=== PATIENT | male | born 1940 | race Two or more races ===

== ENCOUNTER 2017-11-24 20:04 | Inpatient (IN) | payer MEDICAID, MEDICARE ==
[~2017-11-24] VITALS: Ht 177.8 cm; Wt 68.0 kg
[~2017-11-24 20:04] MED LIST: CARVEDILOL25 MG ORAL
[2017-11-24 21:26] LABS: BASOPHILS % (AUTO) 0.8 % (0.0-2.0); EOSINOPHILS % (AUTO) 0.2 % (0.0-3.0); HEMATOCRIT 42.3 % (42.0-52.0); HEMOGLOBIN 13.3 G/DL (14.2-18.0); LYMPHOCYTES % (AUTO) 24.5 % (20.0-45.0); MEAN CORPUSCULAR VOLUME 101 FL (80-99); MONOCYTES % (AUTO) 9.3 % (1.0-10.0); NEUTROPHILS % (AUTO) 65.2 % (45.0-75.0); PLATELET COUNT 211 K/UL (150-450); RED BLOOD COUNT 4.17 M/UL (4.70-6.10); RED CELL DISTRIBUTION WIDTH 12.5 % (11.6-14.8)
--- NOTE | 2017-11-24 21:30 | Emergency Room Report ---
History of Present Illness General Chief Complaint: Dizziness Source: EMS Present Illness HPI 77-year-old male, history of cerebral palsy, presenting with generalized weakness and dizziness. Patient is slow to talk however he is ANO x4. Just states that he has had lightheadedness and dizziness. Has had some episodes of diarrhea. Denies any fever chills, no coughing. No abdominal pain currently Allergies: Coded Allergies: No Known Allergies (Verified , 07/02/10) Patient History Past Medical History: see triage record Past Surgical History: none Pertinent Family History: none Reviewed Nursing Documentation: PMH: Agreed, PSxH: Agreed Nursing Documentation-PMH Past Medical History: No History, Except For Hx Cardiac Problems: Yes - cardiac anomaly Hx Hypertension: Yes Hx Cancer: No Hx Gastrointestinal Problems: No Hx Neurological Problems: Yes - C. Palsy Hx Cerebral Palsy: Yes Review of Systems All Other Systems: negative except mentioned in HPI Physical Exam Vital Signs Date Time Temp Pulse Resp B/P (MAP) Pulse Ox O2 Delivery O2 Flow Rate FiO2 11/24/17 20:02 98.2 88 18 146/80 98 Room Air Sp02 EP Interpretation: reviewed, normal General Appearance: other - cerebral palsy, awake and alert, calm at this time Head: normocephalic, atraumatic Eyes: bilateral eye normal inspection, bilateral eye PERRL, bilateral eye EOMI ENT: normal ENT inspection, normal pharynx, normal voice, moist mucus membranes Neck: normal inspection, full range of motion, supple Respiratory: normal inspection, lungs clear, normal breath sounds, no respiratory distress, no retraction, no wheezing, speaking full sentences, chest symmetrical Cardiovascular #1: normal capillary refill, tachycardia Cardiovascular #2: 2+ radial (R), 2+ radial (L) Gastrointestinal: normal inspection, non tender, soft, non-distended, no guarding Genitourinary: no CVA tenderness Musculoskeletal: normal inspection, back normal, normal range of motion, non- tender Neurologic: normal inspection, alert, oriented x3, responsive, motor strength/ tone normal, sensory intact, normal gait, speech normal Psychiatric: normal inspection, judgement/insight normal, memory normal Skin: normal inspection, normal color, no rash, warm/dry, well hydrated, normal turgor Procedures Critical Care Time Critical Care Time 40 minutes of CC time 77-year-old male, generalized weakness, found to be in ventricular tachycardia, nonsustained VS: Tachycardic. Borderline hypotensive Airway patent. Not hypoxic. PLAN: IV access, labs, lactate, Anticipate admission to Tele vs. [facility] CC time also includes review of labs, review of EMR, discussion with family and paperwork from SNF, d/w hospitalist CC could include dosing of pressors, additional Abx CC time does not include procedures Medical Decision Making Diagnostic Impression: Primary Impression: Generalized weakness Additional Impressions: Cerebral palsy Elevated troponin Non-sustained ventricular tachycardia ER Course 77-year-old male, presenting with generalized weakness, lightheadedness DDX: Dehydration, electrolyte disturbance, infection, cardiac Plan: Obtain labs, ua, EKG, CXR ER course: Pt initially with wide complex tachycardia that had spont resolved. now NSR at 76 +mild elevated troponin Disposition: Patient is to be admitted to tele D/W hospitalist Dr Abad Please note that this Emergency Department Report was dictated using [employer] technology software, occasionally this can lead to erroneous entry secondary to interpretation by the dictation equipment. EKG Diagnostic Results EP Interpretation: Yes Rate: tachycardic Rhythm: Vtach ST Segments: wide complex tachycardia, TWI V5-V6, aVL ASA given to patient: No Rhythm Strip EP Interpretation: Yes Rate: 66 Rhythm: NSR, no PVCs, no ectopy Chest X-ray CXR: Ordered: Yes 1 view Indication: dizziness EP interpretation: Yes Interpretation: negative Impression: no acute disease Electronically signed by Rosa M Tate MD Laboratory Tests Test 11/24/17 21:00 White Blood Count 8.0 K/UL (4.8-10.8) Red Blood Count 4.17 M/UL (4.70-6.10) L Hemoglobin 13.3 G/DL (14.2-18.0) L Hematocrit 42.3 % (42.0-52.0) Mean Corpuscular Volume 101 FL (80-99) H Mean Corpuscular Hemoglobin 31.8 PG (27.0-31.0) H Mean Corpuscular Hemoglobin Concent 31.4 G/DL (32.0-36.0) L Red Cell Distribution Width 12.5 % (11.6-14.8) Platelet Count 211 K/UL (150-450) Mean Platelet Volume 5.7 FL (6.5-10.1) L Neutrophils (%) (Auto) 65.2 % (45.0-75.0) Lymphocytes (%) (Auto) 24.5 % (20.0-45.0) Monocytes (%) (Auto) 9.3 % (1.0-10.0) Eosinophils (%) (Auto) 0.2 % (0.0-3.0) Basophils (%) (Auto) 0.8 % (0.0-2.0) Sodium Level 141 MMOL/L (136-145) Potassium Level 4.4 MMOL/L (3.5-5.1) Chloride Level 105 MMOL/L (98-107) Carbon Dioxide Level 27 MMOL/L (21-32) Anion Gap 9 mmol/L (5-15) Blood Urea Nitrogen 33 mg/dL (7-18) H Creatinine 1.8 MG/DL (0.55-1.30) H Estimate Glomerular Filtration Rate mL/min (>60) Glucose Level 105 MG/DL (74-106) Lactic Acid Level 2.70 mmol/L (0.66-2.22) H Calcium Level 9.5 MG/DL (8.5-10.1) Total Bilirubin 0.3 MG/DL (0.2-1.0) Aspartate Amino Transferase (AST) 17 U/L (15-37) Alanine Aminotransferase (ALT) 19 U/L (12-78) Alkaline Phosphatase 155 U/L (46-116) H Troponin I 0.101 ng/mL (0.000-0.056) Pro-B-Type Natriuretic Peptide 651 pg/mL (0-125) H Total Protein 7.4 G/DL (6.4-8.2) Albumin 3.7 G/DL (3.4-5.0) Globulin 3.7 g/dL Albumin/Globulin Ratio 1.0 (1.0-2.7) Last Vital Signs Date Time Temp Pulse Resp B/P (MAP) Pulse Ox O2 Delivery O2 Flow Rate FiO2 11/24/17 20:02 98.2 88 18 146/80 98 Room Air Disposition: ADMITTED INPATIENT Condition: Critical Rosa M Tate M.D. Nov 24, 2017 21:30
[2017-11-24 21:31] LABS: ANION GAP 9 mmol/L (5-15); BLOOD UREA NITROGEN 33 mg/dL (7-18); CALCIUM 9.5 MG/DL (8.5-10.1); CARBON DIOXIDE 27 MMOL/L (21-32); CHLORIDE 105 MMOL/L (98-107); CREATININE 1.8 MG/DL (0.55-1.30); POTASSIUM 4.4 MMOL/L (3.5-5.1); SODIUM 141 MMOL/L (136-145)
[2017-11-24 21:35] VITALS: BP 93/53
[2017-11-24 21:42] LABS: ALANINE AMINOTRANSFERASE 19 U/L (12-78); ALBUMIN 3.7 G/DL (3.4-5.0); ALKALINE PHOSPHATASE 155 U/L (46-116); ASPARTATE AMINO TRANSFERASE 17 U/L (15-37); BILIRUBIN,TOTAL 0.3 MG/DL (0.2-1.0)
[2017-11-24] MEDS ORDERED: Enalaprilat 2.5mg/2ml Inj IV PRN (22:30)
[2017-11-24] MEDS ORDERED: Miralax 17gm pkt ORAL PRN (22:30)
[2017-11-24] MEDS ORDERED: Albuterol/Ipratropium 3ml neb HHN PRN (22:30)
[2017-11-24] MEDS ORDERED: Nitroglycerin Subl 0.4mg tab SL PRN (22:30)
[2017-11-24] MEDS ORDERED: dilTIAZem HCl 25mg/5ml Inj IV PRN (22:30)
[2017-11-24] MEDS ORDERED: Morphine Sulfate 2mg/ml Inj IVP PRN (22:30)
[2017-11-24] MEDS ORDERED: Ketorolac 30mg Inj IV PRN (22:30)
[2017-11-24 23:47] VITALS: BP 110/54
[2017-11-25] VITALS (7 sets, daily range): BP systolic 82–128; BP diastolic 50–75
[2017-11-25] MEDS ORDERED: DIAZEPAM2 MG ORAL (00:15)
[2017-11-25 05:04] LABS: BASOPHILS % (AUTO) 0.9 % (0.0-2.0); EOSINOPHILS % (AUTO) 0.1 % (0.0-3.0); HEMATOCRIT 33.6 % (42.0-52.0); HEMOGLOBIN 11.4 G/DL (14.2-18.0); LYMPHOCYTES % (AUTO) 32.3 % (20.0-45.0); MEAN CORPUSCULAR VOLUME 99 FL (80-99); MONOCYTES % (AUTO) 8.6 % (1.0-10.0); NEUTROPHILS % (AUTO) 58.1 % (45.0-75.0); PLATELET COUNT 187 K/UL (150-450); RED BLOOD COUNT 3.39 M/UL (4.70-6.10); RED CELL DISTRIBUTION WIDTH 12.5 % (11.6-14.8); WHITE BLOOD COUNT 6.5 K/UL (4.8-10.8)
[2017-11-25 05:19] LABS: INR 1.1 (0.9-1.1)
[2017-11-25 05:33] LABS: CHOLESTEROL 108 MG/DL (< 200); HDL CHOLESTEROL 32 MG/DL (40-60); TRIGLYCERIDES 31 MG/DL (30-150)
[2017-11-25] MEDS: Aspirin Baby 81mg ORAL SCH (08:55)
[2017-11-25] MEDS: Heparin 5000 units/ml inj SUBQ SCH ×2 (08:58→21:27)
[2017-11-25] MEDS ORDERED: Carvedilol 25mg Tab ORAL SCH (09:00)
--- NOTE | 2017-11-25 09:54 | Diagnostic Imaging Report ---
Indication: Pain Technique: XRAY Chest 1v Comparison: 01/27/2016 Findings: Heart size and mediastinal contours within normal limits and stable compared to the prior exam. There is no focal airspace consolidation, pleural effusion or pneumothorax. There is scoliosis of the spine. No acute osseous abnormality seen. Impression: No definite radiographic evidence of acute cardiopulmonary disease.
--- NOTE | 2017-11-25 15:22 | History & Physical ---
History and Physical History & Physicial Dictated for Int Med-Dr Abad no. [id number]. GAYLE VELA Nov 25, 2017 15:22
--- NOTE | 2017-11-25 16:59 | Cardiac Electrophysiology PN ---
Subjective Subjective EP CONSULT DICTATED.BOTH ECGS SUGGESTIVE OF VT. LIKELY NEEDS TRANSFER FOR CARDIAC CATH. [id number] Objective Last 24 Hour Vital Signs Date Time Temp Pulse Resp B/P (MAP) Pulse Ox O2 Delivery O2 Flow Rate FiO2 11/25/17 12:00 45 11/25/17 08:55 64 126/68 11/25/17 08:17 49 16 15/54 95 Room Air 11/25/17 08:00 60 11/25/17 08:00 97.8 63 18 126/75 99 Room Air 11/25/17 07:31 49 16 105/54 99 Room Air 11/25/17 07:05 45 17 108/54 99 Nasal Cannula 2.0 11/25/17 05:39 52 12 103/50 97 Nasal Cannula 2.0 11/25/17 04:00 50 12 128/56 99 Nasal Cannula 2.0 11/25/17 01:50 81 15 106/59 97 Room Air 11/24/17 23:47 60 14 110/54 100 Nasal Cannula 2.0 11/24/17 21:35 98.5 70 15 93/53 100 Nasal Cannula 2.0 11/24/17 20:02 98.2 88 18 146/80 98 Room Air Intake and Output 11/24/17 11/25/17 19:00 07:00 Intake Total 1000 ml Balance 1000 ml IV Total 1000 ml # Voids 1 Laboratory Tests Test 11/24/17 21:00 11/25/17 04:30 White Blood Count 8.0 K/UL (4.8-10.8) 6.5 K/UL (4.8-10.8) Red Blood Count 4.17 M/UL (4.70-6.10) L 3.39 M/UL (4.70-6.10) L Hemoglobin 13.3 G/DL (14.2-18.0) L 11.4 G/DL (14.2-18.0) L Hematocrit 42.3 % (42.0-52.0) 33.6 % (42.0-52.0) L Mean Corpuscular Volume 101 FL (80-99) H 99 FL (80-99) Mean Corpuscular Hemoglobin 31.8 PG (27.0-31.0) H 33.7 PG (27.0-31.0) H Mean Corpuscular Hemoglobin Concent 31.4 G/DL (32.0-36.0) L 34.0 G/DL (32.0-36.0) Red Cell Distribution Width 12.5 % (11.6-14.8) 12.5 % (11.6-14.8) Platelet Count 211 K/UL (150-450) 187 K/UL (150-450) Mean Platelet Volume 5.7 FL (6.5-10.1) L 6.5 FL (6.5-10.1) Neutrophils (%) (Auto) 65.2 % (45.0-75.0) 58.1 % (45.0-75.0) Lymphocytes (%) (Auto) 24.5 % (20.0-45.0) 32.3 % (20.0-45.0) Monocytes (%) (Auto) 9.3 % (1.0-10.0) 8.6 % (1.0-10.0) Eosinophils (%) (Auto) 0.2 % (0.0-3.0) 0.1 % (0.0-3.0) Basophils (%) (Auto) 0.8 % (0.0-2.0) 0.9 % (0.0-2.0) Sodium Level 141 MMOL/L (136-145) Potassium Level 4.4 MMOL/L (3.5-5.1) Chloride Level 105 MMOL/L (98-107) Carbon Dioxide Level 27 MMOL/L (21-32) Anion Gap 9 mmol/L (5-15) Blood Urea Nitrogen 33 mg/dL (7-18) H Creatinine 1.8 MG/DL (0.55-1.30) H Estimat Glomerular Filtration Rate mL/min (>60) Glucose Level 105 MG/DL (74-106) Lactic Acid Level 2.70 mmol/L (0.66-2.22) H Calcium Level 9.5 MG/DL (8.5-10.1) Total Bilirubin 0.3 MG/DL (0.2-1.0) Aspartate Amino Transf (AST/SGOT) 17 U/L (15-37) Alanine Aminotransferase (ALT/SGPT) 19 U/L (12-78) Alkaline Phosphatase 155 U/L (46-116) H Troponin I 0.101 ng/mL (0.000-0.056) 0.285 ng/mL (0.000-0.056) Pro-B-Type Natriuretic Peptide 651 pg/mL (0-125) H Total Protein 7.4 G/DL (6.4-8.2) Albumin 3.7 G/DL (3.4-5.0) Globulin 3.7 g/dL Albumin/Globulin Ratio 1.0 (1.0-2.7) Prothrombin Time 11.4 SEC (9.30-11.50) Prothromb Time International Ratio 1.1 (0.9-1.1) Activated Partial Thromboplast Time 28 SEC (23-33) C-Reactive Protein, Quantitative 0.5 mg/dL (0.00-0.90) Triglycerides Level 31 MG/DL (30-150) Cholesterol Level 108 MG/DL (< 200) LDL Cholesterol 74 mg/dL (<100) HDL Cholesterol 32 MG/DL (40-60) L Cholesterol/HDL Ratio 3.4 (3.3-4.4) Thyroid Stimulating Hormone (TSH) 4.355 uiU/mL (0.358-3.740) PERICO US Nov 25, 2017 16:59
[2017-11-25] MEDS ORDERED: NS 500ML ONE (17:48)
--- NOTE | 2017-11-25 19:18 | Consultation ---
History of Present Illness General Date patient seen: Nov 25, 2017 Chief Complaint: Dizziness Reason for Consultation: inpatient management Present Illness HPI 77-year-old male, history of cerebral palsy BIPA with generalized weakness and dizziness. Patient is slow to talk however he is ANO x4. Just states that he has had lightheadedness and dizziness. Has had some episodes of diarrhea. Denies any fever chills, no coughing. No abdominal pain currently. Pt has hx of arrhythmias in the past and needed cardioversion before. Allergies: Coded Allergies: No Known Allergies (Verified , 07/02/10) Medication History Scheduled Carvedilol* (Carvedilol*), 25 MG ORAL EVERY 12 HOURS, (Reported) Diazepam* (Diazepam*), 2.5 MG ORAL Q6H, (Reported) Patient History Healthcare decision maker Resuscitation status Advanced Directive on File Past Medical/Surgical History Past Medical/Surgical History: (1) Cerebral palsy Review of Systems Constitutional: Reports: no symptoms, malaise, weakness Eye: Reports: no symptoms Physical Exam General Appearance: cachetic Lines, tubes and drains: peripheral, central line HEENT: normocephalic, atraumatic Neck: non-tender, normal alignment Respiratory/Chest: chest wall non-tender, lungs clear, normal breath sounds Breasts: no masses Cardiovascular/Chest: normal peripheral pulses Abdomen: normal bowel sounds Genitourinary/Rectal: normal genital exam Last 24 Hour Vital Signs Date Time Temp Pulse Resp B/P (MAP) Pulse Ox O2 Delivery O2 Flow Rate FiO2 11/25/17 16:00 47 11/25/17 12:00 45 11/25/17 08:55 64 126/68 11/25/17 08:17 49 16 15/54 95 Room Air 11/25/17 08:00 60 11/25/17 08:00 97.8 63 18 126/75 99 Room Air 11/25/17 07:31 49 16 105/54 99 Room Air 11/25/17 07:05 45 17 108/54 99 Nasal Cannula 2.0 11/25/17 05:39 52 12 103/50 97 Nasal Cannula 2.0 11/25/17 04:00 50 12 128/56 99 Nasal Cannula 2.0 11/25/17 01:50 81 15 106/59 97 Room Air 11/24/17 23:47 60 14 110/54 100 Nasal Cannula 2.0 11/24/17 21:35 98.5 70 15 93/53 100 Nasal Cannula 2.0 11/24/17 20:02 98.2 88 18 146/80 98 Room Air Intake and Output 11/24/17 11/25/17 19:00 07:00 Intake Total 1000 ml Balance 1000 ml IV Total 1000 ml # Voids 1 Laboratory Tests Test 11/24/17 21:00 11/25/17 04:30 White Blood Count 8.0 K/UL (4.8-10.8) 6.5 K/UL (4.8-10.8) Red Blood Count 4.17 M/UL (4.70-6.10) L 3.39 M/UL (4.70-6.10) L Hemoglobin 13.3 G/DL (14.2-18.0) L 11.4 G/DL (14.2-18.0) L Hematocrit 42.3 % (42.0-52.0) 33.6 % (42.0-52.0) L Mean Corpuscular Volume 101 FL (80-99) H 99 FL (80-99) Mean Corpuscular Hemoglobin 31.8 PG (27.0-31.0) H 33.7 PG (27.0-31.0) H Mean Corpuscular Hemoglobin Concent 31.4 G/DL (32.0-36.0) L 34.0 G/DL (32.0-36.0) Red Cell Distribution Width 12.5 % (11.6-14.8) 12.5 % (11.6-14.8) Platelet Count 211 K/UL (150-450) 187 K/UL (150-450) Mean Platelet Volume 5.7 FL (6.5-10.1) L 6.5 FL (6.5-10.1) Neutrophils (%) (Auto) 65.2 % (45.0-75.0) 58.1 % (45.0-75.0) Lymphocytes (%) (Auto) 24.5 % (20.0-45.0) 32.3 % (20.0-45.0) Monocytes (%) (Auto) 9.3 % (1.0-10.0) 8.6 % (1.0-10.0) Eosinophils (%) (Auto) 0.2 % (0.0-3.0) 0.1 % (0.0-3.0) Basophils (%) (Auto) 0.8 % (0.0-2.0) 0.9 % (0.0-2.0) Sodium Level 141 MMOL/L (136-145) Potassium Level 4.4 MMOL/L (3.5-5.1) Chloride Level 105 MMOL/L (98-107) Carbon Dioxide Level 27 MMOL/L (21-32) Anion Gap 9 mmol/L (5-15) Blood Urea Nitrogen 33 mg/dL (7-18) H Creatinine 1.8 MG/DL (0.55-1.30) H Estimat Glomerular Filtration Rate mL/min (>60) Glucose Level 105 MG/DL (74-106) Lactic Acid Level 2.70 mmol/L (0.66-2.22) H Calcium Level 9.5 MG/DL (8.5-10.1) Total Bilirubin 0.3 MG/DL (0.2-1.0) Aspartate Amino Transf (AST/SGOT) 17 U/L (15-37) Alanine Aminotransferase (ALT/SGPT) 19 U/L (12-78) Alkaline Phosphatase 155 U/L (46-116) H Troponin I 0.101 ng/mL (0.000-0.056) 0.285 ng/mL (0.000-0.056) Pro-B-Type Natriuretic Peptide 651 pg/mL (0-125) H Total Protein 7.4 G/DL (6.4-8.2) Albumin 3.7 G/DL (3.4-5.0) Globulin 3.7 g/dL Albumin/Globulin Ratio 1.0 (1.0-2.7) Prothrombin Time 11.4 SEC (9.30-11.50) Prothromb Time International Ratio 1.1 (0.9-1.1) Activated Partial Thromboplast Time 28 SEC (23-33) C-Reactive Protein, Quantitative 0.5 mg/dL (0.00-0.90) Triglycerides Level 31 MG/DL (30-150) Cholesterol Level 108 MG/DL (< 200) LDL Cholesterol 74 mg/dL (<100) HDL Cholesterol 32 MG/DL (40-60) L Cholesterol/HDL Ratio 3.4 (3.3-4.4) Thyroid Stimulating Hormone (TSH) 4.355 uiU/mL (0.358-3.740) Height (Feet): 5 Height (Inches): 10.00 Weight (Pounds): 150 Medications Current Medications Medications (Trade) Dose Ordered Sig/Haja Route PRN Reason Start Time Stop Time Status Last Admin Dose Admin Acetaminophen (Tylenol) 650 mg Q4H PRN ORAL FEVER 11/24/17 22:30 12/24/17 22:29 Albuterol/ Ipratropium (Albuterol/ Ipratropium) 3 ml Q4H PRN HHN Shortness of Breath 11/24/17 22:30 11/29/17 22:29 Aspirin (ASA) 162 mg DAILY ORAL 11/25/17 09:00 12/25/17 08:59 11/25/17 08:55 Carvedilol (Coreg) 12.5 mg EVERY 12 HOURS ORAL 11/25/17 21:00 12/25/17 20:59 Enalaprilat (Vasotec) 2.5 mg Q6H PRN IV sbp more than 160 11/24/17 22:30 12/24/17 22:29 Heparin Sodium (Porcine) (Heparin 5000 units/ml) 5,000 units EVERY 12 HOURS SUBQ 11/25/17 09:00 12/25/17 08:59 11/25/17 08:58 Ketorolac Tromethamine (Toradol 30mg) 30 mg Q6HR PRN IV moderate pain ( 4-6) 11/24/17 22:30 11/29/17 22:29 Morphine Sulfate (Morphine Sulfate) 2 mg Q4H PRN IVP severe Pain (Pain Scale 7-10) 11/24/17 22:30 12/01/17 22:29 Nitroglycerin (Ntg) 0.4 mg every 5 minutes PRN SL Prn Chest Pain 11/24/17 22:30 12/24/17 22:29 Ondansetron HCl (Zofran) 4 mg Q6H PRN IVP Nausea & Vomiting 11/24/17 22:30 2 22:29 Polyethylene Glycol (Miralax) 17 gm DAILYPRN PRN ORAL Constipation 11/24/17 22:30 2/11/18 22:29 Sodium Chloride 1,000 ml @ 150 mls/hr Q6H40M IV 11/24/17 22:00 12/24/17 21:59 11/25/17 17:25 Temazepam (Restoril) 15 mg HSPRN PRN ORAL Insomnia 11/24/17 22:30 12/01/17 22:29 Assessment/Plan Problem List: (1) Acute encephalopathy ICD Codes: G93.40 - Encephalopathy, unspecified SNOMED: 2774424 (2) Generalized weakness ICD Codes: R53.1 - Weakness SNOMED: 34780645 (3) Cerebral palsy ICD Codes: G80.9 - Cerebral palsy, unspecified SNOMED: 460372565 (4) Elevated troponin ICD Codes: R74.8 - Abnormal levels of other serum enzymes SNOMED: 751946771, [id number], 444226175 (5) Non-sustained ventricular tachycardia ICD Codes: I47.2 - Ventricular tachycardia SNOMED: 714569286 Assessment/Plan telemetry admit cardio evaluation echo and troponin symptomatic treatment MARIO MCCOLLUM Nov 25, 2017 19:18
--- NOTE | 2017-11-25 19:30 | History and Physical Report ---
DATE OF ADMISSION: 11/24/2017 CHIEF COMPLAINT: The patient is a 77-year-old white male with history of cerebral palsy, presents with a chief complaint of near syncope. HISTORY OF PRESENT ILLNESS: The patient states he has a history of syncope. The patient has a history of cardiac arrhythmia. The patient states that he has arrested twice requiring cardioversion. The patient states that yesterday, he experienced extreme generalized weakness. The patient also had vertigo. The patient states he almost passed out. The patient presented to [place] emergency room. The patient is admitted for near syncope. PAST MEDICAL HISTORY: Significant for: 1. Unknown cardiac arrhythmia. 2. Cerebral palsy. 3. Hypercholesterolemia. PAST SURGICAL HISTORY: The patient denies. CURRENT MEDICATIONS: 1. Carvedilol 25 mg p.o. twice daily. 2. Valium mg p.o. q.6 hours p.r.n. ALLERGIES: No known drug allergies. SOCIAL HISTORY: The patient is a . The patient lives with his adult daughter and grandchild. The patient denies tobacco or alcohol use. REVIEW OF SYSTEMS: CONSTITUTIONAL: The patient denies weight loss or weight gain. The patient denies fevers or chills. HEENT: The patient denies ear or throat pain. The patient denies headache. CARDIOVASCULAR: The patient complains of cardiac arrhythmia as above. The patient denies palpitations. ABDOMEN: The patient denies nausea, vomiting, diarrhea, or constipation. GENITOURINARY: The patient denies dysuria or increased frequency of urination. NEUROMUSCULAR: The patient complains of generalized weakness. The patient complains of near syncope as above. The patient denies seizures. PHYSICAL EXAMINATION: VITAL SIGNS: Temperature 97.8, respirations 18, pulse 45 to 64, and blood pressure 105 to 126/50 to 75. GENERAL: The patient is a well-developed and well-nourished thin-appearing white male, who has choreiform movements. HEENT: Eyes, pupils equal and responsive to light and accommodation. Extraocular movements intact. NECK: Supple without lymphadenopathy. CHEST: Lungs are clear to auscultation bilaterally without wheezes or rales. CARDIOVASCULAR: Regular rate. S1 and S2 are normal without murmurs, rubs, or gallops. ABDOMEN: Soft, nontender, and nondistended. Positive bowel sounds. No evidence of hepatosplenomegaly. Currently, no rebound or guarding noted. EXTREMITIES: Negative for clubbing, cyanosis, or edema. RECTAL/GENITAL: Refused. NEUROLOGIC: Cranial nerves II through XII are grossly intact without focal deficit. Motor strength is difficult to assess secondary to choreiform movements as above. LABORATORY STUDIES: WBC 8.3, hemoglobin 13.3, hematocrit 42.3, and platelets 211,000. Sodium 141, potassium 4.4, chloride 107, CO2 27, BUN 33, creatinine 1.8, and glucose 105. Troponin elevated at 0.101. EKG demonstrated sinus bradycardia at approximately 45 beats per minute. The patient has a first-degree AV block. ASSESSMENT: This is a 77-year-old white male. 1. Near syncope. 2. Bradycardia. 3. Generalized weakness. 4. Vertigo. 5. Cerebral palsy. 6. Elevated troponin. 7. First-degree atrioventricular block. TREATMENT: 1. Near syncope/bradycardia. A Cardiology consultation has been obtained with Dr. Cornell Xiao. An Electrophysiology consultation was obtained with Dr. Janusz Saleem. The patient may require pacemaker. We will follow recommendations of Dr. Saleem. 2. Generalized weakness. 3. Vertigo. 4. History of cerebral palsy. 5. Elevated troponin. As above, a Cardiology consultation has been obtained with Dr. Cornell Xiao. David Dalton M.D. DR: VINCE JOB#: [id number] CC:
[2017-11-25] MEDS: Carvedilol 12.5mg tab ORAL SCH (21:28)
[2017-11-26] VITALS: BP 145/65
[2017-11-26 04:00] VITALS: BP 140/95
[2017-11-26 08:00] VITALS: BP 131/55
[2017-11-26] MEDS: Aspirin Baby 81mg ORAL SCH (08:24)
[2017-11-26] MEDS: Carvedilol 12.5mg tab ORAL SCH ×2 (08:25→21:00)
[2017-11-26] MEDS: Heparin 5000 units/ml inj SUBQ SCH ×2 (08:26→20:45)
--- NOTE | 2017-11-26 09:52 | Pulmonology Progress Note ---
Assessment/Plan Problems: (1) Acute encephalopathy (2) Generalized weakness (3) Cerebral palsy (4) Elevated troponin (5) Non-sustained ventricular tachycardia Assessment/Plan troponin higher no new complains f/u cardio recommendations Subjective ROS Limited/Unobtainable: No Constitutional: Reports: no symptoms HEENT: Repors: no symptoms Respiratory: Reports: no symptoms Cardiovascular: Reports: no symptoms Allergies: Coded Allergies: No Known Allergies (Verified , 07/02/10) Objective Last 24 Hour Vital Signs Date Time Temp Pulse Resp B/P (MAP) Pulse Ox O2 Delivery O2 Flow Rate FiO2 11/26/17 08:25 60 132/55 11/26/17 08:00 97.7 60 18 131/55 96 Room Air 11/26/17 04:00 44 11/26/17 04:00 97.0 69 20 140/95 97 11/26/17 00:00 97.3 60 20 145/65 98 11/26/17 00:00 46 11/25/17 21:28 97 117/58 11/25/17 20:00 44 11/25/17 20:00 97.9 81 16 82/56 97 11/25/17 16:00 47 11/25/17 12:00 45 Intake and Output 11/25/17 11/26/17 19:00 07:00 Intake Total 990 ml 1650 ml Output Total 450 ml 1500 ml Balance 540 ml 150 ml Intake Oral 240 ml IV Total 750 ml 1650 ml Output Urine Total 450 ml 1500 ml General Appearance: no acute distress HEENT: normocephalic, atraumatic Respiratory/Chest: chest wall non-tender, lungs clear Cardiovascular: normal peripheral pulses, normal rate Abdomen: normal bowel sounds, soft, non tender Skin: no rash Neurologic/Psychiatric: no motor/sensory deficits Microbiology Date/Time Source Procedure Growth Status 11/24/17 21:10 Blood Blood Culture - Preliminary NO GROWTH AFTER 24 HOURS Resulted 11/24/17 20:55 Blood Blood Culture - Preliminary NO GROWTH AFTER 24 HOURS Resulted Laboratory Tests 11/26/17 05:15: Troponin I 0.387H Current Medications Medications (Trade) Dose Ordered Sig/Haja Route PRN Reason Start Time Stop Time Status Last Admin Dose Admin Acetaminophen (Tylenol) 650 mg Q4H PRN ORAL FEVER 11/24/17 22:30 12/24/17 22:29 Albuterol/ Ipratropium (Albuterol/ Ipratropium) 3 ml Q4H PRN HHN Shortness of Breath 11/24/17 22:30 11/29/17 22:29 Aspirin (ASA) 162 mg DAILY ORAL 11/25/17 09:00 12/25/17 08:59 11/26/17 08:24 Carvedilol (Coreg) 12.5 mg EVERY 12 HOURS ORAL 11/25/17 21:00 12/25/17 20:59 11/26/17 08:25 Enalaprilat (Vasotec) 2.5 mg Q6H PRN IV sbp more than 160 11/24/17 22:30 12/24/17 22:29 Heparin Sodium (Porcine) (Heparin 5000 units/ml) 5,000 units EVERY 12 HOURS SUBQ 11/25/17 09:00 12/25/17 08:59 11/26/17 08:26 Ketorolac Tromethamine (Toradol 30mg) 30 mg Q6HR PRN IV moderate pain ( 4-6) 11/24/17 22:30 11/29/17 22:29 Morphine Sulfate (Morphine Sulfate) 2 mg Q4H PRN IVP severe Pain (Pain Scale 7-10) 11/24/17 22:30 12/01/17 22:29 Nitroglycerin (Ntg) 0.4 mg every 5 minutes PRN SL Prn Chest Pain 11/24/17 22:30 12/24/17 22:29 Ondansetron HCl (Zofran) 4 mg Q6H PRN IVP Nausea & Vomiting 11/24/17 22:30 12/24/17 22:29 Polyethylene Glycol (Miralax) 17 gm DAILYPRN PRN ORAL Constipation 11/24/17 22:30 12/24/17 22:29 Sodium Chloride 1,000 ml @ 150 mls/hr Q6H40M IV 11/24/17 22:00 12/24/17 21:59 11/26/17 07:20 Temazepam (Restoril) 15 mg HSPRN PRN ORAL Insomnia 11/24/17 22:30 12/01/17 22:29 MARIO MCCOLLUM Nov 26, 2017 09:52
[2017-11-26 12:00] VITALS: BP 122/69
[2017-11-26] MEDS ORDERED: D5NS 1000ml IV ONE (15:54)
[2017-11-26] MEDS ORDERED: NS 500ML ONE (15:54)
[2017-11-26 16:00] VITALS: BP 151/88
--- NOTE | 2017-11-26 16:26 | Internal Med Progress Note ---
Subjective Date of Service: Nov 26, 2017 Physician Name David Vela Attending Physician Brendan Abad MD Current Medications Medications (Trade) Dose Ordered Sig/Haja Route PRN Reason Start Time Stop Time Status Last Admin Dose Admin Acetaminophen (Tylenol) 650 mg Q4H PRN ORAL FEVER 11/24/17 22:30 12/24/17 22:29 Albuterol/ Ipratropium (Albuterol/ Ipratropium) 3 ml Q4H PRN HHN Shortness of Breath 11/24/17 22:30 11/29/17 22:29 Aspirin (ASA) 162 mg DAILY ORAL 11/25/17 09:00 12/25/17 08:59 11/26/17 08:24 Carvedilol (Coreg) 12.5 mg EVERY 12 HOURS ORAL 11/25/17 21:00 12/25/17 20:59 11/26/17 08:25 Diazepam (Valium) 2.5 mg Q6H PRN ORAL For Anxiety 11/26/17 16:00 12/03/17 15:59 Enalaprilat (Vasotec) 2.5 mg Q6H PRN IV sbp more than 160 11/24/17 22:30 12/24/17 22:29 Heparin Sodium (Porcine) (Heparin 5000 units/ml) 5,000 units EVERY 12 HOURS SUBQ 11/25/17 09:00 12/25/17 08:59 11/26/17 08:26 Ketorolac Tromethamine (Toradol 30mg) 30 mg Q6HR PRN IV moderate pain ( 4-6) 11/24/17 22:30 11/29/17 22:29 Morphine Sulfate (Morphine Sulfate) 2 mg Q4H PRN IVP severe Pain (Pain Scale 7-10) 11/24/17 22:30 12/01/17 22:29 Nitroglycerin (Ntg) 0.4 mg every 5 minutes PRN SL Prn Chest Pain 11/24/17 22:30 12/24/17 22:29 Ondansetron HCl (Zofran) 4 mg Q6H PRN IVP Nausea & Vomiting 11/24/17 22:30 12/24/17 22:29 Polyethylene Glycol (Miralax) 17 gm DAILYPRN PRN ORAL Constipation 11/24/17 22:30 12/24/17 22:29 Sodium Chloride 1,000 ml @ 150 mls/hr Q6H40M IV 11/24/17 22:00 12/24/17 21:59 11/26/17 13:46 Tamsulosin HCl (Flomax) 0.4 mg BEDTIME ORAL 11/26/17 21:00 12/26/17 20:59 Temazepam (Restoril) 15 mg HSPRN PRN ORAL Insomnia 11/24/17 22:30 12/01/17 22:29 Allergies: Coded Allergies: No Known Allergies (Verified , 07/02/10) ROS Limited/Unobtainable: No Constitutional: Reports: no symptoms HEENT: Reports: no symptoms Cardiovascular: Reports: no symptoms Respiratory: Reports: no symptoms Gastrointestinal/Abdominal: Reports: no symptoms Genitourinary: Reports: no symptoms Neurologic/Psychiatric: Reports: no symptoms Subjective 77 YO M admitted with near syncope. Now bradycardia-see EP cardiology note- needs transfer to [facility] for cardiac cath. Cover for Int Med-Dr Abad Objective Last Vital Signs Date Time Temp Pulse Resp B/P (MAP) Pulse Ox O2 Delivery O2 Flow Rate FiO2 11/26/17 12:00 97.2 48 20 122/69 96 Room Air 11/25/17 07:05 2.0 General Appearance: WD/WN, no apparent distress, alert EENT: PERRL/EOMI, normal ENT inspection Neck: non-tender, normal alignment, supple, normal inspection Cardiovascular: normal peripheral pulses, normal rate, regular rhythm, no gallop/murmur, no JVD Respiratory/Chest: chest wall non-tender, lungs clear, normal breath sounds, no respiratory distress, no accessory muscle use Abdomen: normal bowel sounds, non tender, soft, no organomegaly, no mass Extremities: normal range of motion, non-tender 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, no motor/sensory deficits, other - choriform movements Skin: normal pigmentation, warm/dry Laboratory Tests Test 11/26/17 05:15 Troponin I 0.387 ng/mL (0.000-0.056) Microbiology Date/Time Source Procedure Growth Status 11/24/17 21:10 Blood Blood Culture - Preliminary NO GROWTH AFTER 24 HOURS Resulted 11/24/17 20:55 Blood Blood Culture - Preliminary NO GROWTH AFTER 24 HOURS Resulted Intake and Output 11/25/17 11/26/17 19:00 07:00 Intake Total 990 ml 1650 ml Output Total 450 ml 1500 ml Balance 540 ml 150 ml Intake Oral 240 ml IV Total 750 ml 1650 ml Output Urine Total 450 ml 1500 ml Assessment/Plan Problem List: (1) Bradycardia Assessment & Plan: See EP cardiology note. Needs transfer to [facility] for cardiac cath (2) Near syncope Assessment & Plan: ?duue to bradycardia? (3) Vertigo (4) Hyperkalemia Assessment & Plan: Kayexalate (5) Non-sustained ventricular tachycardia (6) Elevated troponin Assessment & Plan: see cardiology note. (7) Cerebral palsy Status: not improved DAVID VELA Nov 26, 2017 16:26
[2017-11-26 20:00] VITALS: BP 138/70
[2017-11-26] MEDS: Tamsulosin 0.4mg cap ORAL SCH (20:43)
[2017-11-27] VITALS (7 sets, daily range): BP systolic 123–139; BP diastolic 66–84
--- NOTE | 2017-11-27 08:00 | Consultation ---
DATE OF CONSULTATION: 11/25/2017 CARDIOLOGY CONSULTATION CONSULTING PHYSICIAN: Janusz Saleem M.D. ATTENDING/REFERRING PHYSICIAN: Brendan Abad M.D. REASON FOR CONSULTATION: Bradycardia as well as wide-complex tachycardia, possible ventricular tachycardia. HISTORY OF PRESENT ILLNESS: The patient is a 77-year-old gentleman with history of cerebral palsy, who presented to the emergency room with generalized weakness and dizziness. The patient did not have any chest pain, fever, chills, nausea, vomiting, or diaphoresis. In the emergency room, the patient was in wide-complex tachycardia at rate of 141 beats per minute on 12-lead EKG at 2034 hours as well as 203 hours and 2048 hours. Apparently, arrhythmia terminated spontaneously in the emergency room. The patient was borderline hypotensive. The patient was subsequently admitted to telemetry floor as his symptoms converted to sinus rhythm. The patient underwent an echocardiogram also done that showed ejection fraction of 55%. His troponin also was mildly elevated. Cardiac electrophysiology consultation was requested for further evaluation and management. PAST MEDICAL HISTORY: 1. Hypertension. 2. Cerebral palsy. FAMILY HISTORY: Noncontributory. SOCIAL HISTORY: Does not smoke or drink alcohol. REVIEW OF SYSTEMS: Negative other than what is mentioned in the history of present illness. PHYSICAL EXAMINATION: VITAL SIGNS: Blood pressure 126/68, pulse is 45, respirations 18, and he is afebrile. HEAD AND NECK: Shows no JVD. LUNGS: Clear. CARDIOVASCULAR: Shows regular S1 and S2 with no gallop or murmur and bradycardic. ABDOMEN: Soft. EXTREMITIES: No pitting edema. LABORATORY DATA: His labs show troponin of 0.10 and 0.285. Sodium 141, potassium 4.4, BUN of 32, creatinine 1.8, and glucose of 105. Triglycerides , cholesterol 108. TSH 4.355. BNP 651. His INR is 1.1. ASSESSMENT AND PLAN: 1. Sustained wide-complex tachycardia. I do not have a 12-lead EKG in sinus rhythm, however, of this arrhythmia, this is likely ventricular tachycardia. We will also repeat the troponin. The patient likely would need transfer for cardiac catheterization and evaluation of his coronaries or at least a coronary CT angiogram solution related to his coronaries. In the meantime, I would decrease his Coreg to 12.5 mg b.i.d. in view of his bradycardic episodes. 2. Bradycardia with sinus bradycardia. Again, decrease the Coreg. We will watch the patient on telemetry. 3. Hypertension, on p.r.n. Vasotec. I will discontinue p.r.n. Cardizem and add p.r.n. hydralazine to his medical regimen. 4. Cerebral palsy. Thank you very much, Dr. Abad, for allowing me to participate in the care of this gentleman. Please do not hesitate to contact me for any questions regarding my evaluation. Jansuz Saleem M.D. DR: KIKI JOB#: [id number] CC:
[2017-11-27] MEDS: Aspirin Baby 81mg ORAL SCH (08:52)
[2017-11-27] MEDS: Carvedilol 12.5mg tab ORAL SCH (08:52)
[2017-11-27] MEDS: Heparin 5000 units/ml inj SUBQ SCH ×2 (08:58→20:34)
--- NOTE | 2017-11-27 10:24 | Cardiac Electrophysiology PN ---
Assessment/Plan Assessment/Plan 1. Sustained wide-complex tachycardia. 12-lead EKG similar to Wide complex tachy morphology. Can't exclude SVT with LBBB aberrancy versus V. Tach. Would need transfer for cardiac catheterization and EP study specially that also has rising troponin 0.1 and then 0.285 and then 0.387 Repeat troponin and add Lipitor 10 mg 2. 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 Decrease his Coreg to 6.25 mg b.i.d 3. Hypertension, on Coreg and p.r.n. Vasotec 4. Cerebral palsy. Subjective Subjective No chest pain or SOB. Lowest HR was 46 overnight. Objective Last 24 Hour Vital Signs Date Time Temp Pulse Resp B/P (MAP) Pulse Ox O2 Delivery O2 Flow Rate FiO2 11/27/17 08:52 47 136/69 11/27/17 08:01 47 18 Room Air 21 11/27/17 08:00 97.3 47 20 136/69 97 Room Air 11/27/17 04:00 97.2 55 20 139/66 96 Room Air 11/27/17 04:00 43 11/27/17 00:06 97.9 42 18 133/84 Room Air 11/27/17 00:00 44 11/26/17 21:00 46 138/60 11/26/17 20:04 45 11/26/17 20:00 98.2 51 20 138/70 96 Room Air 11/26/17 19:30 55 16 Room Air 21 11/26/17 16:00 46 11/26/17 16:00 97.3 49 20 151/88 95 Room Air 11/26/17 12:00 45 11/26/17 12:00 97.2 48 20 122/69 96 Room Air Intake and Output 11/26/17 11/27/17 19:00 07:00 Intake Total 510 ml 1870.0 ml Output Total 750 ml 1050 ml Balance -240 ml 820.0 ml Intake Oral 360 ml 120 ml IV Total 150 ml 1750.0 ml Output Urine Total 750 ml 1050 ml # Voids 1 # Bowel Movements 1 1 Microbiology Date/Time Source Procedure Growth Status 11/24/17 21:10 Blood Blood Culture - Preliminary NO GROWTH AFTER 48 HOURS Resulted 11/24/17 20:55 Blood Blood Culture - Preliminary NO GROWTH AFTER 48 HOURS Resulted Objective HEAD AND NECK: Shows no JVD. LUNGS: Clear. CARDIOVASCULAR: Regular S1 and S2 with no gallop or murmur and bradycardic. ABDOMEN: Soft. EXTREMITIES: No pitting edema. PERICO US Nov 27, 2017 10:24
--- NOTE | 2017-11-27 11:25 | Pulmonology Progress Note ---
Assessment/Plan Problems: (1) Acute encephalopathy (2) Generalized weakness (3) Cerebral palsy (4) Elevated troponin (5) Non-sustained ventricular tachycardia Assessment/Plan looks comfortable adjust cardiac meds no new complains f/u cardio recommendations to transfer to cardiac cath. Subjective ROS Limited/Unobtainable: No Constitutional: Reports: no symptoms HEENT: Repors: no symptoms Respiratory: Reports: no symptoms Allergies: Coded Allergies: No Known Allergies (Verified , 07/02/10) Objective Last 24 Hour Vital Signs Date Time Temp Pulse Resp B/P (MAP) Pulse Ox O2 Delivery O2 Flow Rate FiO2 11/27/17 08:52 47 136/69 11/27/17 08:01 47 18 Room Air 21 11/27/17 08:00 97.3 47 20 136/69 97 Room Air 11/27/17 04:00 97.2 55 20 139/66 96 Room Air 11/27/17 04:00 43 11/27/17 00:06 97.9 42 18 133/84 Room Air 11/27/17 00:00 44 11/26/17 21:00 46 138/60 11/26/17 20:04 45 11/26/17 20:00 98.2 51 20 138/70 96 Room Air 11/26/17 19:30 55 16 Room Air 21 11/26/17 16:00 46 11/26/17 16:00 97.3 49 20 151/88 95 Room Air 11/26/17 12:00 45 11/26/17 12:00 97.2 48 20 122/69 96 Room Air Intake and Output 11/26/17 11/27/17 19:00 07:00 Intake Total 510 ml 1870.0 ml Output Total 750 ml 1050 ml Balance -240 ml 820.0 ml Intake Oral 360 ml 120 ml IV Total 150 ml 1750.0 ml Output Urine Total 750 ml 1050 ml # Voids 1 # Bowel Movements 1 1 General Appearance: WD/WN HEENT: normocephalic, atraumatic Respiratory/Chest: chest wall non-tender, lungs clear Cardiovascular: normal peripheral pulses, normal rate Abdomen: normal bowel sounds, soft, non tender, no scars Extremities: no cyanosis Skin: no rash Microbiology Date/Time Source Procedure Growth Status 11/24/17 21:10 Blood Blood Culture - Preliminary NO GROWTH AFTER 48 HOURS Resulted 11/24/17 20:55 Blood Blood Culture - Preliminary NO GROWTH AFTER 48 HOURS Resulted Laboratory Tests 11/27/17 11:00: Troponin I [Pending] Current Medications Medications (Trade) Dose Ordered Sig/Haja Route PRN Reason Start Time Stop Time Status Last Admin Dose Admin Acetaminophen (Tylenol) 650 mg Q4H PRN ORAL FEVER 11/24/17 22:30 12/24/17 22:29 Albuterol/ Ipratropium (Albuterol/ Ipratropium) 3 ml Q4H PRN HHN Shortness of Breath 11/24/17 22:30 11/29/17 22:29 Aspirin (ASA) 162 mg DAILY ORAL 11/25/17 09:00 12/25/17 08:59 11/27/17 08:52 Atorvastatin Calcium (Lipitor) 10 mg BEDTIME ORAL 11/27/17 21:00 12/27/17 20:59 Carvedilol (Coreg) 6.25 mg EVERY 12 HOURS ORAL 11/27/17 21:00 12/27/17 20:59 Diazepam (Valium) 2.5 mg Q6H PRN ORAL For Anxiety 11/26/17 16:00 12/03/17 15:59 Enalaprilat (Vasotec) 2.5 mg Q6H PRN IV sbp more than 160 11/24/17 22:30 12/24/17 22:29 Heparin Sodium (Porcine) (Heparin 5000 units/ml) 5,000 units EVERY 12 HOURS SUBQ 11/25/17 09:00 12/25/17 08:59 11/27/17 08:58 Ketorolac Tromethamine (Toradol 30mg) 30 mg Q6HR PRN IV moderate pain ( 4-6) 11/24/17 22:30 11/29/17 22:29 Morphine Sulfate (Morphine Sulfate) 2 mg Q4H PRN IVP severe Pain (Pain Scale 7-10) 11/24/17 22:30 12/01/17 22:29 Nitroglycerin (Ntg) 0.4 mg every 5 minutes PRN SL Prn Chest Pain 11/24/17 22:30 12/24/17 22:29 Ondansetron HCl (Zofran) 4 mg Q6H PRN IVP Nausea & Vomiting 11/24/17 22:30 2/11/18 22:29 Polyethylene Glycol (Miralax) 17 gm DAILYPRN PRN ORAL Constipation 11/24/17 22:30 12/24/17 22:29 Sodium Chloride 1,000 ml @ 150 mls/hr Q6H40M IV 11/26/17 21:30 12/26/17 21:29 11/27/17 10:26 Tamsulosin HCl (Flomax) 0.4 mg BEDTIME ORAL 11/26/17 21:00 12/26/17 20:59 11/26/17 20:43 Temazepam (Restoril) 15 mg HSPRN PRN ORAL Insomnia 11/24/17 22:30 12/01/17 22:29 MARIO MCCOLLUM Nov 27, 2017 11:25
--- NOTE | 2017-11-27 11:54 | Internal Med Progress Note ---
Subjective Date of Service: Nov 27, 2017 Physician Name David Vela Attending Physician Brendan Abad MD Current Medications Medications (Trade) Dose Ordered Sig/Haja Route PRN Reason Start Time Stop Time Status Last Admin Dose Admin Acetaminophen (Tylenol) 650 mg Q4H PRN ORAL FEVER 11/24/17 22:30 12/24/17 22:29 Albuterol/ Ipratropium (Albuterol/ Ipratropium) 3 ml Q4H PRN HHN Shortness of Breath 11/24/17 22:30 11/29/17 22:29 Aspirin (ASA) 162 mg DAILY ORAL 11/25/17 09:00 12/25/17 08:59 11/27/17 08:52 Atorvastatin Calcium (Lipitor) 10 mg BEDTIME ORAL 11/27/17 21:00 12/27/17 20:59 Carvedilol (Coreg) 6.25 mg EVERY 12 HOURS ORAL 11/27/17 21:00 12/27/17 20:59 Diazepam (Valium) 2.5 mg Q6H PRN ORAL For Anxiety 11/26/17 16:00 12/03/17 15:59 Enalaprilat (Vasotec) 2.5 mg Q6H PRN IV sbp more than 160 11/24/17 22:30 12/24/17 22:29 Heparin Sodium (Porcine) (Heparin 5000 units/ml) 5,000 units EVERY 12 HOURS SUBQ 11/25/17 09:00 12/25/17 08:59 11/27/17 08:58 Ketorolac Tromethamine (Toradol 30mg) 30 mg Q6HR PRN IV moderate pain ( 4-6) 11/24/17 22:30 11/29/17 22:29 Morphine Sulfate (Morphine Sulfate) 2 mg Q4H PRN IVP severe Pain (Pain Scale 7-10) 11/24/17 22:30 12/01/17 22:29 Nitroglycerin (Ntg) 0.4 mg every 5 minutes PRN SL Prn Chest Pain 11/24/17 22:30 12/24/17 22:29 Ondansetron HCl (Zofran) 4 mg Q6H PRN IVP Nausea & Vomiting 11/24/17 22:30 12/24/17 22:29 Polyethylene Glycol (Miralax) 17 gm DAILYPRN PRN ORAL Constipation 11/24/17 22:30 12/24/17 22:29 Tamsulosin HCl (Flomax) 0.4 mg BEDTIME ORAL 11/26/17 21:00 12/26/17 20:59 11/26/17 20:43 Temazepam (Restoril) 15 mg HSPRN PRN ORAL Insomnia 11/24/17 22:30 12/01/17 22:29 Allergies: Coded Allergies: No Known Allergies (Verified , 07/02/10) Subjective 77 YO M admitted with near syncope. Now bradycardia-see EP cardiology note- await transfer to [facility] @ [place] for cardiac cath. Cover for Int Med-Dr Abad Objective Last Vital Signs Date Time Temp Pulse Resp B/P (MAP) Pulse Ox O2 Delivery O2 Flow Rate FiO2 11/27/17 08:52 47 136/69 11/27/17 08:01 18 Room Air 21 11/27/17 08:00 97.3 97 11/25/17 07:05 2.0 Laboratory Tests Test 11/27/17 11:00 Troponin I Pending Microbiology Date/Time Source Procedure Growth Status 11/24/17 21:10 Blood Blood Culture - Preliminary NO GROWTH AFTER 48 HOURS Resulted 11/24/17 20:55 Blood Blood Culture - Preliminary NO GROWTH AFTER 48 HOURS Resulted Intake and Output 11/26/17 11/27/17 19:00 07:00 Intake Total 510 ml 1870.0 ml Output Total 750 ml 1050 ml Balance -240 ml 820.0 ml Intake Oral 360 ml 120 ml IV Total 150 ml 1750.0 ml Output Urine Total 750 ml 1050 ml # Voids 1 # Bowel Movements 1 1 Objective General Appearance: WD/WN, no apparent distress, alert EENT: PERRL/EOMI, normal ENT inspection Neck: non-tender, normal alignment, supple, normal inspection Cardiovascular: normal peripheral pulses, braducardoa, regular rhythm, no gallop/murmur, no JVD Respiratory/Chest: chest wall non-tender, lungs clear, normal breath sounds, no respiratory distress, no accessory muscle use Abdomen: normal bowel sounds, non tender, soft, no organomegaly, no mass Extremities: normal range of motion, non-tender Neurologic: placement specialist II-XII grossly normal, no motor/sensory deficits, other - choriform movements Skin: normal pigmentation, warm/dry Assessment/Plan Problem List: (1) Bradycardia Assessment & Plan: See EP cardiology note. Needs transfer to [facility] for cardiac cath (2) Near syncope Assessment & Plan: ?duue to bradycardia? (3) Vertigo (4) Hyperkalemia Assessment & Plan: Kayexalate (5) Non-sustained ventricular tachycardia Assessment & Plan: See caridology note, Await transfer to [facility] @ [place] for cardiac cath. (6) Elevated troponin Assessment & Plan: see cardiology note. (7) Cerebral palsy Status: not improved DAVID VELA Nov 27, 2017 11:53
--- NOTE | 2017-11-27 12:13 | Cardiology Report ---
APPROVED REPORT EXAM: Two-dimensional and M-mode echocardiogram with Doppler and color Doppler. INDICATION Left Ventricular Function M-Mode DIMENSIONS IVSd1.2 (0.7-1.1cm)Left Atrium (MM)3.1 (1.6-4.0cm) LVDd4.6 (3.5-5.6cm)Aortic Root2.9 (2.0-3.7cm) PWd0.9 (0.7-1.1cm)Aortic Cusp Exc.2.3 (1.5-2.0cm) LVDs2.6 (2.5-4.0cm) PWs1.7 cm Technically difficult study due to poor acoustic windows. Study quality precludes accurate assessment of regional wall motion. Normal left ventricular chamber size, systolic function and wall motion. Left ventricular ejection fraction estimated to be 55 %. Mild left ventricular hypertrophy. Anterior Echo-free space, may be due to pericardial fat or effusion. Mild right ventricular enlargement. Right atrial chamber size is within normal limits. Left atrial chamber size is within normal limits. Focal aortic valve sclerosis with adequate cusp excursion. Thickened mitral valve leaflets with normal excursion. Mitral annulus and aortic root calcification. Normal pulmonic valve structure. Normal tricuspid valve structure. IVC measures at 1.7 with physiologic collapse. A color flow and spectral Doppler study was performed and revealed: Trace aortic regurgitation. No mitral regurgitation. Mitral diastolic velocities suggest mild left ventricular dysfunction (Grade I ). Trace tricuspid regurgitation. Tricuspid systolic velocities suggests peak right ventricular systolic pressure of 37 mmHg, consistent with mild pulmonary hypertension. Trace pulmonic regurgitation present.
[2017-11-27] MEDS: Carvedilol 6.25mg Tab ORAL SCH (20:35)
[2017-11-27] MEDS: Tamsulosin 0.4mg cap ORAL SCH (20:36)
--- NOTE | 2017-11-28 11:12 | Discharge Summary ---
Discharge Summary Hospital Course Date of Admission Nov 24, 2017 at 22:14 Date of Discharge Nov 27, 2017 at 22:45 Admitting Diagnosis generalized weakness HPI Jose C Cuellar is a 77 year old male who was admitted on Nov 24, 2017 at 22:14 for Generalized Weakness Hospital Course dc summary #[id number] Discharge Condition Upon Discharge: stable Discharge Disposition Patient was transferred to [facility] at [place] for cardiac interventions Discharge Diagnoses: Discharge Instructions Discharge Instructions Special Instructions I have been assigned to complete a D/C Summary on this account. I was not involved in the patient management Marizol Lynn NP (Vanchtein) Nov 28, 2017 11:12
--- NOTE | 2017-11-29 04:00 | Discharge Summary 2 SIG ---
DATE OF ADMISSION: 11/24/2017 DATE OF DISCHARGE: 11/27/2017 REASON FOR ADMISSION: 77-year-old male with history of cerebral palsy and hypertension, presented to the emergency department with generalized weakness and dizziness. The patient reported severe lightheadedness and dizziness. No fever. No chills. No coughing. No chest pain. No shortness of breath. No abdominal pain. Workup in the emergency room revealed elevated troponin -0.101 EKG showed a wide complex tachycardia with heart rate of 141, which spontaneously converted to normal sinus rhythm. Chest x-ray revealed no acute cardiopulmonary pathology. The patient was admitted with elevated troponin, sustained wide complex tachycardia, cerebral palsy, episode of generalized weakness, and near syncope. HOSPITAL STAY: The patient was admitted to monitored floor. Cardiology consult was requested. Echocardiogram revealed preserved ejection fraction of 55% and right ventricular systolic pressure of 37 consistent with mild pulmonary hypertension. Serial troponin were ordered. The patient was started on statin. Troponin noted to be trending up from 0.101 up to 0.285 and then 0.387. The last one, down to 0.193. According to rocket engine tester, the patient needed transfer to tertiary facility for cardiac catheterization and evaluation of coronary arteries. Meantime, due to the sinus bradycardia noted on telemetry, dose of Coreg was decreased. The patient was closely monitored on telemetry. 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 Compressor Station Operator could not exclude SVT with left bundle-branch block aberrancy versus ventricular tachycardia. The patient needed to be transferred to tertiary facility for cardiac catheterization and EP study. Near syncope episode was likely due to arrhythmia and wide complex tachycardia. Transfer was arranged to [facility]. The patient was stable for transfer via [facility] ambulance. FINAL DIAGNOSES: 1. Acute encephalopathy. 2. Sustained wide complex tachycardia (spontaneously resolved) 3. Bradycardia. 4. 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 5. Possible nonsustained ventricular tachycardia 6. Hypertension. 7. Cerebral palsy. 8. Near syncope (likely due to arrhythmia and wide complex tachycardia. DISCHARGE MEDICATIONS: List of medications sent to admitting facility. DISCHARGE INSTRUCTIONS: The patient was discharged to [facility] for cardiac intervention. Brendan Abad M.D. I have been assigned to dictate discharge summary on this account and I was not involved in the patient's management. Marizol Lynn (Vanchtein) NAndreaPAndrea DR: ANA LUISA JOB#: [id number] CC: ASHLEIGH
--- NOTE | 2017-11-30 14:39 | Cardiology Report ---
APPROVED REPORT EKG Measurement Heart [id number] Sinus bradycardia with 1st degree AV block Left axis deviation Left bundle branch block Abnormal ECG
== END 2017-11-27 22:45 | disposition short-term general hospital (02) | DRG 71 ==
LOC: EDBD 20:04 → EDBEDREQ 21:34 → EMR 22:10 → 2E 22:14 → EDBEDREQ 11-25 06:07
DX: G93.40 Encephalopathy, unspecified (principal); I47.2 Ventricular tachycardia; I45.3 Trifascicular block; R00.1 Bradycardia, unspecified; I10 Essential (primary) hypertension; G80.9 Cerebral palsy, unspecified; I44.0 Atrioventricular block, first degree; E78.00 Pure hypercholesterolemia, unspecified
CPT/HCPCS: 36415; 71045; 80053; 80061; 82962; 83605; 83880; 84443; 84484; 85025; 85610; 85730; 86140; 87040; 93005; 93306; 94664; 99291